=== PATIENT | female | born 1995 | race Caucasian/White ===

== ENCOUNTER 2023-04-08 22:00 | Emergency (ER) | payer OTHER ==
[~2023-04-08] VITALS: Ht 157.5 cm; Wt 81.6 kg
[2023-04-08 22:24] VITALS: BP 117/89; PULSE 96; RESP 16; TEMP 97.4; O2SAT 97
[2023-04-08 23:20] VITALS: BP 117/89; PULSE 96; RESP 16; TEMP 97.4; O2SAT 97
== END 2023-04-08 23:20 | disposition home or self-care (01) ==
LOC: MED 22:00
DX: R53.1 Weakness (principal); F32.9 Major depressive disorder, single episode, unspecified
CPT/HCPCS: 99281